=== PATIENT | female | born 1960 | race Hispanic/Latino ===

== ENCOUNTER 2016-07-25 11:01 | Day surgery (SDC) | payer MEDICAID ==
[2016-07-25 11:14] VITALS: BMI 29.7
[2016-07-25] MEDS ORDERED: Lidocaine 1% Inj (20ml) ONE (13:16)
--- NOTE | 2016-07-25 13:49 | CP.SDSHP ---
Same Day Surgery H & P - History Proposed Procedure: US guided FNA of right thyroid nodule Pre-Op Diagnosis: Thyroid nodule - Allergies Allergies: Allergies Penicillins Allergy (Verified 07/25/16 11:25) RASH - Physical Exam Vital Signs: Vital Signs 07/25/16 07/25/16 11:24 11:26 Temperature 98.5 F Pulse Rate 83 Respiratory 20 20 Rate Blood Pressure 141/90 O2 Sat by Pulse 95 Oximetry Mental Status: Alert & Oriented x3 Neuro: WNL Heart: WNL - Impression Impression: Pt with bilateral thyroid nodule referred for. FNA of right thyroid nodule. Plan FNA of thyroid nodule. Pt. Evaluated Today:Candidate for Anesthesia & Procedure: No Short Stay Discharge - Short Stay Discharge Admitting Diagnosis/Reason for Visit: E04.1 Referrals: Mukesh Lamb MD [Primary Care Provider] - Progress Note/Discharge Note with Instructions: S/P FNA of right thyroid nodule. No complications.
--- NOTE | 2016-07-25 13:51 | PCM.SURG1 ---
Surgeon's Initial Post Op Note - Surgeon's Notes Surgeon: Marcelo Kim MD Level Glass Vial Filler: None Type of Anesthesia: Local Pre-Operative Diagnosis: Thyroid nodule Operative Findings: US showed a 3 cm solid rigth thyroid nodule. Post-Operative Diagnosis: Thyroid nodule Operation Performed: US guided FNA. Specimen/Specimens Removed: 25 g FNA x 4 Estimated Blood Loss: EBL {In ML}: 0 Blood Products Given: N/A Drains Used: No Drains Post-Op Condition: Good Date of Surgery/Procedure: 07/25/16 Time of Surgery/Procedure: 13:45
[2016-07-25 13:53] VITALS: RESP 18
[2016-07-25 14:06] VITALS: BP 147/92; PULSE 77; TEMP 98.2; O2SAT 95
--- NOTE | 2016-07-26 11:31 | VASCULAR ---
PROCEDURE: Date of Procedure: 07/25/2016 PROCEDURE: 1. Ultrasound guided FNA of right thyroid nodule, CPT 57955 2. Ultrasound guidance for FNA, 45688 Medications: 4cc 1% Lidocaine HISTORY: Enlarged right thyroid nodule. TECHNIQUE: Following informed consent and procedure time-out, a limited ultrasound patient's neck confirmed the presence of a 2.8 cmcomplex right thyroid nodule which is predominantly solid. After the patient's neck was prepped and draped in the usual sterile fashion, the skin was anesthetized with 1% lidocaine. Ultrasound-guided fine needle aspiration was then performed of the dominant right thyroid nodule. A total of 4 passes were made into the nodule with 25 gauge needle under ultrasound guidance. The FNA specimen was sent for routine pathology. Post biopsy ultrasound showed no hematoma. IMPRESSION: Ultrasound-guided FNA of the dominant right thyroid nodule.
== END 2016-07-25 15:00 | disposition home or self-care (01) ==
LOC: H.OPSURG 11:01
PROVIDERS: ATTEND Otolaryngology Facial Plastic Surgery
DX: E04.1 Nontoxic single thyroid nodule (principal)

== ENCOUNTER 2017-02-27 22:18 | Emergency (ER) | payer MEDICAID ==
[2017-02-27 22:18] VITALS: BMI 29.7
[2017-02-27 22:35] VITALS: TEMP 98.8; O2SAT 97
[2017-02-27] MEDS ORDERED: Albuterol-Ipratrop 3 mg / 0.5 (3 ml) UD IH STA (23:10)
[2017-02-27] MEDS ORDERED: Albuterol-Ipratrop 3 mg / 0.5 (3 ml) UD ONE (23:33)
--- NOTE | 2017-02-27 23:41 | ED PDOC ---
HPI: CCC, URI, Sore Throat Time Seen by Provider: 02/27/17 22:39 Chief Complaint (Nursing): Cough, Cold, Congestion Chief Complaint (Provider): cough, congestion History Per: Patient History/Exam Limitations: no limitations Onset/Duration Of Symptoms: Days (3) Current Symptoms Are (Timing): Still Present Associated Symptoms: Cough, Sputum, Nasal Congestion Additional History Per: Patient Additional Complaint(s): 57 y/o female presents with cough, congestion x 3 days. Patient reports nasal congestion, and persistent cough which became productive of yellow sputum as of today. Associated chest tightness, wheezing. Patient states tonight while yawning her left side of her face became painful and "swollen", like her "bones were sticking out" and once she rubbed the area the swelling went away and was left with some residual numbness to the area. Patient reports history of CSF leak for which she is being followed by specialist for, notes leakage in to mouth daily, states before swelling happened she had large amount of fluid in her mouth. Denies headache, dizziness, extremity numbness/weakness, chest pain , shortness of breath, palpitations, leg pain/swelling, recent travel, sick contacts. Past Medical History Vital Signs: Last Vital Signs Temp 98.8 F 02/27/17 22:30 Pulse 109 H 02/27/17 22:30 Resp 20 02/28/17 03:10 BP 154/96 H 02/27/17 22:30 Pulse Ox 97 02/28/17 03:49 - Medical History PMH: Anxiety, Asthma, Bronchitis, Gastritis, Gastrointestinal Ulcer, GERD, Hypercholesterolemia - Family History Family History: States: No Known Family Hx - Home Medications Home Medications: Ambulatory Orders Medication Instructions Recorded Montelukast Sodium [Singulair] 10 mg PO DAILY 09/24/14 Omeprazole 40 mg PO DAILY 09/24/14 PARoxetine [Paxil] 20 mg PO DAILY 09/24/14 Cholecalciferol [Vitamin D 1000 IU] 1,000 iu PO DAILY 07/25/16 Gabapentin [Neurontin] 400 mg PO BID 07/25/16 Pravastatin Sodium [Pravastatin 20 mg PO DAILY 07/25/16 Sodium] tiZANidine [Zanaflex] 4 mg PO DAILY 07/25/16 Albuterol HFA [Ventolin HFA 90 1 - 2 puff IH Q4 PRN #1 inh 02/28/17 mcg/actuation (8 g)] Fluticasone Nasal [Flonase] 1 actuation NS BID #1 bottle 02/28/17 Prednisone 50 mg PO DAILY #4 tablet 02/28/17 Promethazine HCl/Codeine 5 ml PO Q8 PRN 3 Days 02/28/17 [Prometh-Codein 6.25-10 mg/5 ml] - Allergies Allergies/Adverse Reactions: Allergies Allergy/AdvReac Type Severity Reaction Status Date / Time levofloxacin [From Levaquin] Allergy ANAPHYLAXIS Verified 02/27/17 22:29 Penicillins Allergy RASH Verified 07/25/16 11:25 Review of Systems ROS Statement: Except As Marked, All Systems Reviewed And Found Negative ENT: Positive for: Nose Congestion Respiratory: Positive for: Cough, Sputum, Wheezing Physical Exam - Reviewed Nursing Documentation Reviewed: Yes Vital Signs Reviewed: Yes - Physical Exam Appears: Positive for: Well, Non-toxic, Uncomfortable (actively coughing) Head Exam: Positive for: ATRAUMATIC, NORMAL INSPECTION, NORMOCEPHALIC Skin: Positive for: Normal Color Eye Exam: Positive for: Normal appearance ENT: Positive for: Nasal Congestion Neck: Positive for: Normal, Painless ROM Cardiovascular/Chest: Positive for: Regular Rate, Rhythm Respiratory: Positive for: Decreased Breath Sounds Gastrointestinal/Abdominal: Positive for: Normal Exam Back: Positive for: Normal Inspection Extremity: Positive for: Normal ROM Neurologic/Psych: Positive for: Alert, Oriented - Laboratory Results Result Diagrams: 02/28/17 00:01 02/28/17 00:01 - ECG ECG: Positive for: Viewed By Me (reviewed by ED attending) ECG Rhythm: Positive for: Sinus Tachycardia O2 Sat by Pulse Oximetry: 97 - Radiology X-Ray: Viewed By Me X-Ray Interpretation: No Acute Disease - Progress ED Course And Treament: labs, ekg, chest xray, duonebs Case discussed with ED attending Dr. Youngblood; will order CT facial bones EXAM: CT Maxillofacial Without Intravenous Contrast CLINICAL HISTORY: 57 years old, female; Condition or disease; Other: Lefdt facial swelling; Additional info: Left facial swelling TECHNIQUE: Axial computed tomography images of the face without intravenous contrast. All CT scans at this facility use one or more dose reduction techniques, viz.: automated exposure control; ma/kV adjustment per patient size (including targeted exams where dose is matched to indication; i.e. head); or iterative reconstruction technique. Coronal and sagittal reformatted images were created and reviewed. COMPARISON: No relevant prior studies available. FINDINGS: Bones/joints: Mild degenerative changes of spine. No acute fracture. Soft tissues: Unremarkable. Lymph nodes: Shotty cervical lymph nodes. Orbits: Unremarkable as visualized. Sinuses: Postsurgical changes. Scattered mild mucosal thickening. No air-fluid levels. Mastoid air cells: No mastoid effusion. Dental: Few dental caries. IMPRESSION: 1. No acute findings. 2. Non-acute findings are described above. on re-eval, patient still with persistent cough; solumedrol, promethazine with codeine ordered On re-eval, patient notes improvement of cough, but states it has returned after 15 mins. Trial heliox ordered for bronchospasms 4:15 Patient resting comfortably; states cough has improved. Patient educated on findings, discharged with rx Promethazine with codeine, albuterol HFA, prednisone, flonase. Advised follow up PMD 2-3 days. Follow up ENT/Neuro for chronic CSF leak/resolved facial swelling Return precautions given Disposition - Clinical Impression Clinical Impression: URI (upper respiratory infection), Bronchospasm - Patient ED Disposition Is Patient to be Admitted: No Counseled Patient/Family Regarding: Studies Performed, Diagnosis, Need For Followup, Rx Given - Disposition Disposition: Routine/Home Disposition Time: 04:15 Condition: IMPROVED Prescriptions: Albuterol HFA [Ventolin HFA 90 mcg/actuation (8 g)] 1 - 2 puff IH Q4 PRN #1 inh PRN Reason: Wheezing Fluticasone Nasal [Flonase] 1 actuation NS BID #1 bottle Prednisone 50 mg PO DAILY #4 tablet Promethazine HCl/Codeine [Prometh-Codein 6.25-10 mg/5 ml] 5 ml PO Q8 PRN 3 Days PRN Reason: Cough Instructions: Upper Respiratory Infection (ED), Bronchospasm (ED) Forms: [employer] (Cuban)
[2017-02-28 00:20] LABS: BASO # 0.1 K/uL (0.0-0.2); BASO % 0.8 % (0.0-2.0); EOS # 0.7 K/uL (0.0-0.7); EOS % 10.2 % (0.0-4.0); HEMOGLOBIN 11.1 g/dL (12.0-16.0); LYMPH # 2.2 K/uL (1.0-4.3); LYMPH % 29.9 % (20.0-40.0); MEAN CELL VOLUME 91.1 fl (81.0-99.0); MEAN CORPUSCULAR HEMOGLOBIN 29.3 pg (27.0-31.0); MEAN CORPUSCULAR HGB CONC 32.2 g/dL (33.0-37.0); MONO # 0.7 K/uL (0.0-0.8); MONO % 9.4 % (0.0-10.0); NEUT # 3.6 K/uL (1.8-7.0); NEUT % 49.7 % (50.0-75.0); NRBC % 0.1 % (0.0-0.0); RBC 3.78 Mil/uL (3.80-5.20); RED CELL DISTRIBUTION WIDTH 14.3 % (11.5-14.5); WHITE BLOOD COUNT 7.3 K/uL (4.8-10.8)
[2017-02-28 00:22] LABS: ALB/GLOB RATIO 1.2 (1.0-2.1); ALT/SGPT 55 U/L (9-52); AST/SGOT 43 U/L (14-36); BLOOD UREA NITROGEN 12 mg/dl (7-17); CALCIUM 8.9 mg/dL (8.4-10.2); GFR AFRICAN-AMERICAN > 60; GFR NON-AFRICAN AMERICAN > 60
[2017-02-28] MEDS ORDERED: Promethazine/Cod 6.25mg-10mg/5ml Syr UD PO STA (01:34)
--- NOTE | 2017-02-28 01:40 | CT ---
EXAM: CT Maxillofacial Without Intravenous Contrast CLINICAL HISTORY: 57 years old, female; Condition or disease; Other: Lefdt facial swelling; Additional info: Left facial swelling TECHNIQUE: Axial computed tomography images of the face without intravenous contrast. All CT scans at this facility use one or more dose reduction techniques, viz.: automated exposure control; ma/kV adjustment per patient size (including targeted exams where dose is matched to indication; i.e. head); or iterative reconstruction technique. Coronal and sagittal reformatted images were created and reviewed. COMPARISON: No relevant prior studies available. FINDINGS: Bones/joints: Mild degenerative changes of spine. No acute fracture. Soft tissues: Unremarkable. Lymph nodes: Shotty cervical lymph nodes. Orbits: Unremarkable as visualized. Sinuses: Postsurgical changes. Scattered mild mucosal thickening. No air-fluid levels. Mastoid air cells: No mastoid effusion. Dental: Few dental caries. IMPRESSION: 1.No acute findings. 2.Non-acute findings are described above.
[2017-02-28] MEDS ORDERED: Promethazine/Cod 6.25mg-10mg/5ml Syr UD ONE (01:49)
[2017-02-28 06:27] VITALS: BP 142/88; PULSE 99; RESP 16
--- NOTE | 2017-02-28 09:48 | RAD ---
HISTORY: cough, congestion COMPARISON: None available. TECHNIQUE: Chest PA and lateral FINDINGS: Examination limited by habitus. LUNGS: No focal consolidation. Please note that chest x-ray has limited sensitivity for the detection of pulmonary masses. PLEURA: No significant pleural effusion identified. No definite pneumothorax . CARDIOVASCULAR: The cardiomediastinal silhouette appears within normal limits of size. OSSEOUS STRUCTURES: Mild degenerative changes. VISUALIZED UPPER ABDOMEN: Unremarkable. OTHER FINDINGS: None. IMPRESSION: No focal consolidation, significant pleural effusion, or definite pneumothorax identified.
--- NOTE | 2017-02-28 11:05 | CARD ---
APPROVED REPORT EKG Measurement Heart [id number] <Conclusion> Sinus tachycardia Otherwise normal ECG
== END 2017-02-28 04:09 | disposition home or self-care (01) ==
LOC: H.ER 22:18
DX: J06.9 Acute upper respiratory infection, unspecified (principal); J98.01 Acute bronchospasm; E78.00 Pure hypercholesterolemia, unspecified; F41.9 Anxiety disorder, unspecified; Z88.0 Allergy status to penicillin
CPT/HCPCS: 70486; 71046; 80053; 84484; 85025; 87804; 93005; 96374; 99283; J2930

== ENCOUNTER 2017-11-27 17:23 | Emergency (ER) | payer MEDICAID ==
[2017-11-27 17:23] VITALS: BMI 29.7
[2017-11-27 17:38] VITALS: RESP 16
[2017-11-27 19:02] LABS: VENOUS BLOOD GAS BASE EXCESS -2.1 mmol/L (0.0-2.0); VENOUS BLOOD GAS PCO2 78 mmHg (40-60); VENOUS BLOOD GAS PO2 40 mm/Hg (30-55); VENOUS BLOOD PH 7.17 (7.32-7.43)
[2017-11-27 19:14] LABS: BASO % 0.7 % (0.0-2.0); EOS # 0.5 K/uL (0.0-0.7); EOS % 8.1 % (0.0-4.0); HEMOGLOBIN 11.7 g/dL (12.0-16.0); LYMPH # 2.6 K/uL (1.0-4.3); LYMPH % 38.7 % (20.0-40.0); MEAN CELL VOLUME 89.9 fl (81.0-99.0); MEAN CORPUSCULAR HEMOGLOBIN 30.4 pg (27.0-31.0); MEAN CORPUSCULAR HGB CONC 33.8 g/dL (33.0-37.0); MEAN PLATELET VOLUME 8.7 fl (7.2-11.7); MONO # 0.5 K/uL (0.0-0.8); NEUT % 44.5 % (50.0-75.0); RBC 3.83 Mil/uL (3.80-5.20); RED CELL DISTRIBUTION WIDTH 14.6 % (11.5-14.5); WHITE BLOOD COUNT 6.6 K/uL (4.8-10.8)
[2017-11-27 19:15] LABS: INR 0.9; PROTHROMBIN TIME 10.2 Seconds (9.8-13.1)
[2017-11-27 19:17] LABS: PARTIAL THROMBOPLASTIN TIME 35.5 Seconds (25.6-37.1)
[2017-11-27 19:22] LABS: ALB/GLOB RATIO 1.3 (1.0-2.1); ALBUMIN 4.2 g/dL (3.5-5.0); ALT/SGPT 46 U/L (9-52); AST/SGOT 47 U/L (14-36); BLOOD UREA NITROGEN 16 mg/dl (7-17); CALCIUM 9.4 mg/dL (8.4-10.2); GFR NON-AFRICAN AMERICAN > 60; LIPASE 104 U/L (23-300)
--- NOTE | 2017-11-27 19:51 | ED PDOC ---
HPI: Neurologic - General Time Seen by Provider: 11/27/17 18:06 Chief Complaint (Nursing): Weakness/Neurological Deficit Source: patient Exam Limitations: no limitations - History of Present Illness Timing/Duration: other (2 months) Associated Symptoms: fatigue, numbness in legs/feet, tingling in legs/feet, other (tingling in arms) Allergies/Adverse Reactions: Allergies levofloxacin [From Levaquin] Allergy (Verified 11/27/17 17:32) ANAPHYLAXIS Penicillins Allergy (Verified 11/27/17 17:32) RASH Home Medications: Ambulatory Orders Montelukast Sodium [Singulair] 10 mg PO DAILY 09/24/14 PARoxetine [Paxil] 20 mg PO DAILY 09/24/14 RX: Omeprazole 40 mg PO DAILY 09/24/14 Cholecalciferol [Vitamin D 1000 IU] 1,000 iu PO DAILY 07/25/16 Pravastatin Sodium 20 mg PO DAILY 07/25/16 RX: Gabapentin [Neurontin] 400 mg PO BID 07/25/16 RX: tiZANidine [Zanaflex] 4 mg PO DAILY 07/25/16 Fluticasone Nasal [Flonase] 1 actuation NS BID #1 bottle 02/28/17 RX: Albuterol HFA [Ventolin HFA 90 mcg/actuation (8 g)] 1 - 2 puff IH Q4 PRN #1 inh 02/28/17 RX: Prednisone 50 mg PO DAILY #4 tablet 02/28/17 RX: Promethazine HCl/Codeine [Prometh-Codein 6.25-10 mg/5 ml] 5 ml PO Q8 PRN 3 Days 02/28/17 Metoclopramide HCl [Reglan] 5 mg PO BID #14 tablet 11/27/17 Additional Complaint(s): 57 yo F presents to the ED with complaint of two months of dizziness, headache, and worsening tingling in her arms and legs. PT states in April she had a brain surgery after having surgical problems associated and being referred by an ENT. PT unsure of what ENT involvement was. Pt states that while in the hospital, cristofer samuels began having left sided abdominal pain. An ultrasound showed a kidney abnormality and she was dischared with a urology referral. Pt went to see the urologist who told her she needed to see a soil checker. Pt had not seen a soil checker to this point. PT states she knows she should have followed up regarding the worsening headache and abdominal pain but that due to personal issues, she has been unable to. Denies fever, nuchal rigdity, blood in urine, pain with urination, fever, weakness, or other complaints. PMD: Dr. Lamb Neurosurgeon: Dr Henry Adamson ENT: Dr. Humphreys Past Medical History Vital Signs: Last Vital Signs Temp 98.6 F 11/27/17 17:33 Pulse 101 H 11/27/17 17:33 Resp 16 11/27/17 17:33 BP 160/66 H 11/27/17 17:33 Pulse Ox 97 11/27/17 17:33 - Medical History PMH: Anxiety, Asthma, Bronchitis, Gastritis, Gastrointestinal Ulcer, GERD, Hypercholesterolemia - Family History Family History: States: Unknown Family Hx - Home Medications Home Medications: Ambulatory Orders Medication Instructions Recorded Montelukast Sodium [Singulair] 10 mg PO DAILY 09/24/14 PARoxetine [Paxil] 20 mg PO DAILY 09/24/14 RX: Omeprazole 40 mg PO DAILY 09/24/14 Cholecalciferol [Vitamin D 1000 IU] 1,000 iu PO DAILY 07/25/16 Pravastatin Sodium 20 mg PO DAILY 07/25/16 RX: Gabapentin [Neurontin] 400 mg PO BID 07/25/16 RX: tiZANidine [Zanaflex] 4 mg PO DAILY 07/25/16 Fluticasone Nasal [Flonase] 1 actuation NS BID #1 bottle 02/28/17 RX: Albuterol HFA [Ventolin HFA 90 1 - 2 puff IH Q4 PRN #1 inh 02/28/17 mcg/actuation (8 g)] RX: Prednisone 50 mg PO DAILY #4 tablet 02/28/17 RX: Promethazine HCl/Codeine 5 ml PO Q8 PRN 3 Days 02/28/17 [Prometh-Codein 6.25-10 mg/5 ml] Metoclopramide HCl [Reglan] 5 mg PO BID #14 tablet 11/27/17 - Allergies Allergies/Adverse Reactions: Allergies Allergy/AdvReac Type Severity Reaction Status Date / Time levofloxacin [From Levaquin] Allergy ANAPHYLAXIS Verified 11/27/17 17:32 Penicillins Allergy RASH Verified 11/27/17 17:32 Physical Exam - Physical Exam Appears: Positive for: Well, Non-toxic, No Acute Distress Head Exam: Positive for: ATRAUMATIC, NORMAL INSPECTION Skin: Positive for: Normal Color, Warm, Dry Eye Exam: Positive for: Normal appearance, EOMI, PERRL. Negative for: Nystagmus ENT: Positive for: Normal ENT Inspection Neck: Positive for: Normal Cardiovascular/Chest: Positive for: Regular Rate, Rhythm. Negative for: Chest Non Tender Respiratory: Positive for: Normal Breath Sounds Pulses-Radial (L): 2+ Pulses-Radial (R): 2+ Gastrointestinal/Abdominal: Positive for: Normal Exam, Bowel Sounds, Soft. Negative for: Tenderness Back: Negative for: L CVA Tenderness - Laboratory Results Result Diagrams: 11/27/17 19:00 11/27/17 17:00 - ECG O2 Sat by Pulse Oximetry: 97 Medical Decision Making Medical Decision Making: Pt presents with worsening headache, left facial pain, and left renal pain following previous brain surgery. Also with pain to left jaw consistent with parotid gland origin. Will get CT brain and facial bones. CT abd and pelvis for work up of worsening left flank pain. Pain control. Labs. Re-evaluate pt. 23:50 -Labs and imaging unremarkable. Information discussed with patient. He will follow up with ENT specialist regarding chronic sinusitis and also with nephrol ogist as previously referred for right sided flank pain. Disposition - Clinical Impression Clinical Impression: Headache, Chronic sinusitis - Disposition Disposition: Routine/Home Disposition Time: 23:50 Condition: IMPROVED Additional Instructions: Take Reglan as needed for nausea. Follow up with ENT to discuss chronic sinusitis and with soil checker regarding left flank pain. Return to the emergency department if symptoms worsen. Prescriptions: Metoclopramide HCl [Reglan] 5 mg PO BID #14 tablet Instructions: Sinusitis, Adult (DC), Chronic Sinusitis Forms: [employer] (Urdu) Print Language: THAI
[2017-11-27] MEDS ORDERED: Iohexol 300 100 ML IJ ONE (21:04)
[2017-11-27] MEDS ORDERED: Sodium Chloride 0.9% 50 ML IV ONE (21:05)
[2017-11-27] MEDS ORDERED: Iohexol 300 50 ML ONE (21:05)
[2017-11-27] MEDS ORDERED: Naproxen 500 MG TAB PO STA (23:18)
[2017-11-28 00:36] VITALS: BP 133/74; PULSE 87; TEMP 98.1
--- NOTE | 2017-11-28 08:57 | CT ---
Date of service: 11/27/2017 PROCEDURE: CT HEAD WITH AND WITHOUT CONTRAST HISTORY: headache and numbness after brain surgery COMPARISON: 09/24/2014 TECHNIQUE: Axial computed tomography images were obtained through the head/brain with and without intravenous contrast enhancement. Contrast dose: 90 mL Omnipaque 300 Radiation dose: Total exam DLP = 781.07 and 796.59 mGy-cm. This CT exam was performed using one or more of the following dose reduction techniques: Automated exposure control, adjustment of the mA and/or kV according to patient size, and/or use of iterative reconstruction technique. FINDINGS: HEMORRHAGE: No intracranial hemorrhage. BRAIN: No mass, mass effect or edema. No abnormal intracranial enhancement. No atrophy or chronic microvascular ischemic changes. VENTRICLES: Unremarkable. No hydrocephalus. CALVARIUM: Unremarkable. SINUSES: Status post bilateral medial antrectomy/uncinectomy. Chronic ethmoid and frontal sinusitis. MASTOID AIR CELLS: Unremarkable as visualized. No mastoid effusion. OTHER FINDINGS: None. IMPRESSION: No intracranial mass, hemorrhage or evidence of acute infarct. Chronic paranasal sinusitis. Postoperative changes of the maxillary sinuses. The preliminary findings for this examination were reported by [facility] at 11:04 p.m. on 11/27/2017. There is concurrence of this report with the preliminary findings.
--- NOTE | 2017-11-28 10:40 | CT ---
Date of service: 11/27/2017 PROCEDURE: CT Abdomen and Pelvis with contrast HISTORY: Worsening left-sided pain. COMPARISON: None. TECHNIQUE: Intravenous contrast dose: 90 cc Omnipaque 300. Radiation dose: Total exam DLP = 979.89. mGy-cm. This CT exam was performed using one or more of the following dose reduction techniques: Automated exposure control, adjustment of the mA and/or kV according to patient size, and/or use of iterative reconstruction technique. FINDINGS: LOWER THORAX: Unremarkable. LIVER: Hepatic steatosis. No focal masses. No intrahepatic bile duct dilatation or perihepatic ascites. Incidental finding(s): Simple cyst right hepatic lobe 1.7 cm. Additional smaller presumed benign findings identified scattered throughout the liver these are well-circumscribed and likely additional cysts. GALLBLADDER AND BILE DUCTS: Unremarkable. PANCREAS: Unremarkable. No gross lesion or ductal dilatation. SPLEEN: Unremarkable. ADRENALS: Unremarkable. No mass. KIDNEYS AND URETERS: Unremarkable. No hydronephrosis. No solid mass. VASCULATURE: Unremarkable. No aortic aneurysm. BOWEL: Unremarkable. No obstruction. No gross mural thickening. APPENDIX: Normal appendix. PERITONEUM: Unremarkable. No free fluid. No free air. LYMPH NODES: Unremarkable. No enlarged lymph nodes. BLADDER: Unremarkable. REPRODUCTIVE: Unremarkable. BONES: No acute fracture. OTHER FINDINGS: None. IMPRESSION: No acute findings related to/accounting for the clinical presentation. Additional benign and/or incidental findings described above. Concordant results (preliminary interpretation) provided by [employer]. Procedure Completed: 22:56. Preliminary Report: Dictated and Authenticated: 23:18. Final Interpretation: 10:38.
--- NOTE | 2017-11-28 10:43 | CT ---
Date of service: 11/27/2017 PROCEDURE: CT MAXILLOFACIAL BONES WITH CONTRAST HISTORY: left facial pain over parotid gland COMPARISON: 02/28/[address] TECHNIQUE: Contiguous axial CT images of the maxillofacial bones were obtained following administration of IV contrast. Coronal and sagittal reformats were generated. Intravenous contrast Dose: 50 cc Omnipaque 300. Radiation dose: Total exam DLP = 773.93 mGy-cm. This CT exam was performed using one or more of the following dose reduction techniques: Automated exposure control, adjustment of the mA and/or kV according to patient size, and/or use of iterative reconstruction technique. FINDINGS: NASAL BONES: Unremarkable. ORBITS: Unremarkable. PARANASAL SINUSES/ MASTOIDS: Mild ethmoid and left frontal sinusitis. Similar findings identified on the prior study. MAXILLA: Unremarkable. MANDIBLE/ TEMPOROMANDIBULAR JOINTS: Unremarkable. SKULL BASE: Unremarkable. TEMPORAL BONES: Middle ears and mastoid grossly unremarkable. OTHER FINDINGS: None. IMPRESSION: No acute findings related to/accounting for the clinical presentation. Additional benign and/or incidental findings described above. No significant interval change compared to the prior examination(s). Concordant results (preliminary interpretation) provided by [employer]. Procedure Completed: 22:01. Preliminary Report: Dictated and Authenticated: 23:12. Final Interpretation: 10:41. November 28, 2017
[2017-11-29 15:28] VITALS: O2SAT 97
== END 2017-11-28 00:35 | disposition home or self-care (01) ==
LOC: H.ER 17:23
DX: R51 Headache (principal); J32.9 Chronic sinusitis, unspecified; E78.00 Pure hypercholesterolemia, unspecified; Z88.0 Allergy status to penicillin
CPT/HCPCS: 70470; 70488; 74177; 80053; 81025; 82803; 83690; 85025; 85610; 85730; 86850; 86900; 96374; 96375; 99285; J2270; J2765; Q9967

== ENCOUNTER 2018-07-10 19:50 | Inpatient (IN) | payer MEDICAID ==
[2018-07-10 21:20] LABS: VENOUS BLOOD GAS BASE EXCESS 2.5 mmol/L (0.0-2.0); VENOUS BLOOD GAS PCO2 53 mmHg (40-60); VENOUS BLOOD GAS PO2 34 mm/Hg (30-55); VENOUS BLOOD PH 7.35 (7.32-7.43)
[2018-07-10 21:27] LABS: BASO % 0.6 % (0.0-2.0); EOS # 0.4 K/uL (0.0-0.7); HEMOGLOBIN 11.9 g/dL (12.0-16.0); LYMPH % 29.3 % (20.0-40.0); MEAN CORPUSCULAR HEMOGLOBIN 29.5 pg (27.0-31.0); MEAN CORPUSCULAR HGB CONC 32.8 g/dL (33.0-37.0); MEAN PLATELET VOLUME 8.6 fl (7.2-11.7); MONO # 0.6 K/uL (0.0-0.8); MONO % 8.1 % (0.0-10.0); NEUT # 3.8 K/uL (1.8-7.0); NRBC % 0.1 % (0.0-0.0); RBC 4.02 Mil/uL (3.80-5.20); RED CELL DISTRIBUTION WIDTH 14.8 % (11.5-14.5); WHITE BLOOD COUNT 6.8 K/uL (4.8-10.8)
--- NOTE | 2018-07-10 21:31 | ED PDOC ---
HPI: Headache Time Seen by Provider: 07/10/18 20:20 Chief Complaint (Nursing): Headache Chief Complaint (Provider): Headache History Per: Patient History/Exam Limitations: no limitations Onset/Duration Of Symptoms: Days (x 2 weeks) Current Symptoms Are (Timing): Still Present Quality: "Pain" Preceeding Symptoms: Visual Disturbances Associated Symptoms: Blurred Vision, Extremity Weakness Additional Complaint(s): 58 year old female with two weeks worsening dizziness, headache and shortness of breath that started today. patient also reports right sided neck pain that radiates to her right arm. 1 year ago, the patient has brain surgery for a CSF leak and has a history of a herniated disc in her neck as well as chronic lower back pain. Conditions are supposed to be managed with physical therapy. However, patient has missed the last few sessions because it exacerbates the pain for the two days following. She describes dizziness as a combination of that and vertigo, feeling lightheaded constantly and room spinning dizzy when moving. Yesterday, she had an episode where the left side of her face was numb and her left leg was not moving properly. Today, the episodes of vertigo became so severe, she lost vision and felt like she would pass out. PMD: Dr. Mukesh Lamb Past Medical History Reviewed: Historical Data, Nursing Documentation, Vital Signs Vital Signs: Last Vital Signs Temp 98.7 F 07/10/18 20:02 Pulse 81 07/10/18 21:27 Resp 17 07/10/18 21:27 BP 154/84 H 07/10/18 21:27 Pulse Ox 96 07/10/18 21:27 Primary Care Provider: Doctor,Conversion - Medical History PMH: Anxiety, Asthma, Bronchitis, Gastritis, Gastrointestinal Ulcer, GERD, Hypercholesterolemia - Family History Family History: States: Unknown Family Hx - Home Medications Home Medications: Ambulatory Orders Medication Instructions Recorded Montelukast Sodium [Singulair] 10 mg PO DAILY 09/24/14 Omeprazole 40 mg PO DAILY 09/24/14 PARoxetine [Paxil] 40 mg PO DAILY 09/24/14 Gabapentin [Neurontin] 400 mg PO BID 07/25/16 Albuterol HFA [Ventolin HFA 90 1 - 2 puff IH Q4 PRN #1 inh 02/28/17 mcg/actuation (8 g)] Fluticasone Nasal [Flonase] 1 actuation NS BID #1 bottle 02/28/17 Atorvastatin [Lipitor] 40 mg PO DAILY 07/10/18 Cyanocobalamin (Vitamin B-12) 1,000 mcg PO DAILY 07/10/18 [Vitamin B-12] - Allergies Allergies/Adverse Reactions: Allergies Allergy/AdvReac Type Severity Reaction Status Date / Time levofloxacin [From Levaquin] Allergy ANAPHYLAXIS Verified 07/10/18 20:00 Penicillins Allergy RASH Verified 07/10/18 20:00 Review of Systems ROS Statement: Except As Marked, All Systems Reviewed And Found Negative Respiratory: Positive for: Shortness of Breath Musculoskeletal: Positive for: Neck Pain (radiates to right arm) Neurological: Positive for: Headache, Dizziness, Other (vertigo) Physical Exam - Reviewed Nursing Documentation Reviewed: Yes Vital Signs Reviewed: Yes - Physical Exam Appears: Positive for: No Acute Distress Head Exam: Positive for: ATRAUMATIC, NORMOCEPHALIC Skin: Positive for: Normal Color, Warm, Dry Eye Exam: Positive for: EOMI, Normal appearance, PERRL Neck: Positive for: Normal, Painless ROM, Supple Cardiovascular/Chest: Positive for: Regular Rate, Rhythm. Negative for: Murmur Respiratory: Positive for: Normal Breath Sounds. Negative for: Respiratory Distress Gastrointestinal/Abdominal: Positive for: Normal Exam, Soft. Negative for: Tenderness Extremity: Positive for: Normal ROM (x 4) Neurological/Psych: Positive for: Awake, Alert, Normal Tone, Symmetric/Intact Strength (of all extremities), Oriented (x 3). Negative for: Motor/Sensory Deficits, Facial Droop - Laboratory Results Result Diagrams: 07/11/18 05:41 07/11/18 05:41 Lab Results: pO2 34 mm/Hg (30-55) 07/10/18 21:10 VBG pH 7.35 (7.32-7.43) 07/10/18 21:10 VBG pCO2 53 mmHg (40-60) 07/10/18 21:10 VBG HCO3 25.9 mmol/L 07/10/18 21:10 VBG Total CO2 30.9 mmol/L (22-28) H 07/10/18 21:10 VBG O2 Sat (Calc) 70.9 % (40-65) H 07/10/18 21:10 VBG Base Excess 2.5 mmol/L (0.0-2.0) H 07/10/18 21:10 VBG Potassium 3.7 mmol/L (3.6-5.2) 07/10/18 21:10 Sodium 139.0 mmol/L (132-148) 07/10/18 21:10 Chloride 105.0 mmol/L (98-107) 07/10/18 21:10 Glucose 99 mg/dL (65-105) 07/10/18 21:10 Lactate 1.1 mmol/L (0.7-2.1) 07/10/18 21:10 FiO2 21.0 % 07/10/18 21:10 - ECG O2 Sat by Pulse Oximetry: 96 (RA) Pulse Ox Interpretation: Normal Medical Decision Making Medical Decision Makin:22 MDM: Patient with previous CSF leak with brain surgery, now with unusual symptoms of vertigo vs dizziness vs headache CT brain and CT C spine Labs workup for infectious cause or other abnormalities Neuro consuilt probable admission 22:10 CT and labs unremarkable Patient remains symptomatic Admit patient for observation under Dr. Lugo with neuro consult Scribe Attestation: Documented by Mayela Robbins, acting as a scribe for Trisha Sanchez MD. Provider Scribe Attestation: All medical record entries made by the Scribe were at my direction and personally dictated by me. I have reviewed the chart and agree that the record accurately reflects my personal performance of the history, physical exam, medical decision making, and the department course for this patient. I have also personally directed, reviewed, and agree with the discharge instructions and disposition. Disposition - Clinical Impression Clinical Impression: Headache, Blurring of visual image - Patient ED Disposition Is Patient to be Admitted: Yes - Disposition Disposition Time: 22:10 Condition: GUARDED - Pt Status Changed To: Hospital Disposition Of: Observation
[2018-07-10 21:36] LABS: PROTHROMBIN TIME 10.9 Seconds (9.8-13.1)
[2018-07-10 21:37] LABS: ALB/GLOB RATIO 1.3 (1.0-2.1); ALBUMIN 4.4 g/dL (3.5-5.0); ALT/SGPT 34 U/L (9-52); AST/SGOT 37 U/L (14-36); BLOOD UREA NITROGEN 13 mg/dl (7-17); CALCIUM 9.6 mg/dL (8.4-10.2); GFR NON-AFRICAN AMERICAN > 60
[2018-07-10 21:39] LABS: PARTIAL THROMBOPLASTIN TIME 36.3 Seconds (25.6-37.1)
[2018-07-10 21:47] LABS: URINE BILIRUBIN NEGATIVE (NEGATIVE); URINE BLOOD SMALL (NEGATIVE); URINE CLARITY CLEAR (Clear); URINE COLOR YELLOW (YELLOW); URINE GLUCOSE (UA) NEG (NEGATIVE); URINE LEUKOCYTE ESTERASE NEG Leu/uL (Negative); URINE PROTEIN NEGATIVE (NEGATIVE); URINE UROBILINOGEN 0.2-1.0 mg/dL (0.2-1.0)
[2018-07-10 21:54] LABS: SQUAMOUS EPITHIAL 3 /hpf (0-5)
[2018-07-10 21:55] LABS: URINE BACTERIA FEW (<OCC)
[2018-07-11] MEDS ORDERED: Albuterol HFA 90 mcg/actuation (8 g) IH PRN (00:28)
[2018-07-11 00:35] VITALS: BMI 32.3
[2018-07-11] MEDS ORDERED: Magnesium Hydroxide Susp 30 ml UD PO ONE (00:38)
[2018-07-11] MEDS: Albuterol-Ipratrop 3 mg / 0.5 (3 ml) UD INH SCH ×4 (02:55→19:15)
[2018-07-11] MEDS ORDERED: Pneumococcal 23-Valent Vaccine IM ONE (06:30)
[2018-07-11 07:25] LABS: HEMOGLOBIN 11.3 g/dL (12.0-16.0); MEAN CELL VOLUME 89.2 fl (81.0-99.0); MEAN CORPUSCULAR HEMOGLOBIN 29.8 pg (27.0-31.0); MEAN CORPUSCULAR HGB CONC 33.4 g/dL (33.0-37.0); RBC 3.8 Mil/uL (3.80-5.20); RED CELL DISTRIBUTION WIDTH 14.8 % (11.5-14.5)
[2018-07-11 07:35] LABS: LDL CHOLESTEROL 97 mg/dL (0-129)
[2018-07-11 07:53] LABS: T3 1.14 nmol/L (1.49-2.60)
[2018-07-11 08:10] LABS: ALB/GLOB RATIO 1.3 (1.0-2.1); ALBUMIN 4.2 g/dL (3.5-5.0); ALT/SGPT 26 U/L (9-52); AST/SGOT 33 U/L (14-36); BLOOD UREA NITROGEN 12 mg/dl (7-17); CALCIUM 9.7 mg/dL (8.4-10.2); GFR NON-AFRICAN AMERICAN > 60; HDL CHOLESTEROL 48 MG/DL (30-70)
[2018-07-11] MEDS: Enoxaparin 40 mg Syringe SC SCH (09:04)
[2018-07-11] MEDS: Pantoprazole 40 mg EC Tab PO SCH (09:05)
[2018-07-11] MEDS ORDERED: Gadodiamide 287 MG/ML VIAL (15ML) IV ONE (09:21)
--- NOTE | 2018-07-11 09:23 | CT ---
Date of service: 07/10/2018 PROCEDURE: CT HEAD WITHOUT CONTRAST. HISTORY: dizziness, left sided weakness COMPARISON: 11/27/2017. CT head TECHNIQUE: Axial computed tomography images were obtained through the head/brain without intravenous contrast. Supplemental Coronal and Sagittal projections created and reviewed. Radiation dose: Total exam DLP = <inf_radiation_dlp> mGy-cm. This CT exam was performed using one or more of the following dose reduction techniques: Automated exposure control, adjustment of the mA and/or kV according to patient size, and/or use of iterative reconstruction technique. FINDINGS: HEMORRHAGE: No intracranial hemorrhage. BRAIN: No mass effect or edema. Bifrontal cortical atrophy unchanged. VENTRICLES: Unremarkable. No hydrocephalus. CALVARIUM: Unremarkable. PARANASAL SINUSES: No acute inflammatory changes. Postoperative changes medial wall both maxillary sinuses. Primarily frontal/chronic sinusitis. MASTOID AIR CELLS: Unremarkable as visualized. No inflammatory changes. OTHER FINDINGS: None. IMPRESSION: No acute intracranial abnormalities. No significant findings to account for the clinical presentation. No significant interval change compared to the prior examination(s). Concordant results (preliminary interpretation) provided by [facility]. Procedure Completed: 20:43. Preliminary Report: Interpreted and electronically signed: 21:00. Final Interpretation: 09:20. July 11, 2018.
--- NOTE | 2018-07-11 09:26 | CT ---
Date of service: 07/10/2018 PROCEDURE: CT Cervical Spine without contrast HISTORY: neck pain radiating to right arm COMPARISON: None available. TECHNIQUE: Axial computed tomography images were obtained of the cervical spine without the use of intravenous contrast. Coronal and sagittal reformatted images were created and reviewed. Radiation dose: Total exam DLP = 354.45 mGy-cm. This CT exam was performed using one or more of the following dose reduction techniques: Automated exposure control, adjustment of the mA and/or kV according to patient size, and/or use of iterative reconstruction technique. FINDINGS: VERTEBRAE: No fracture. Normal alignment. No destructive bony lesion. DISCS/SPINAL CANAL/NEURAL FORAMINA: No significant central canal or neural foraminal stenosis. Disc degenerative change C5-6. Less pronounced changes unilaterally on the left at C4-5. PARASPINAL SOFT TISSUES: Unremarkable. OTHER FINDINGS: None. IMPRESSION: No significant or acute findings to account for/ related to the clinical presentation. Additional benign and/or incidental findings described above. Concordant results (preliminary interpretation) provided by [facility]. Procedure Completed: 20:47. Preliminary Report: Interpreted and electronically signed: 21:02. Final Interpretation: 09:22. July 11, 2018.
--- NOTE | 2018-07-11 10:49 | MRI ---
Date of service: 07/11/2018 PROCEDURE: MRI BRAIN WITHOUT CONTRAST HISTORY: worsening ALONSO, subj left sided weakness, vertigo COMPARISON: None available. TECHNIQUE: Multiplanar, multisequence MR images of the brain were obtained without intravenous contrast enhancement. FINDINGS: HEMORRHAGE: None DWI: No evidence of an acute or early subacute infarction. BRAIN PARENCHYMA: No mass effect or edema. No atrophy or chronic microvascular ischemic changes. VENTRICLES: Unremarkable. No hydrocephalus. CRANIUM: Unremarkable. ORBITS: Grossly unremarkable. PARANASAL SINUSES/MASTOIDS: Opacification of the left frontal sinus VASCULAR SYSTEM: Skull base flow voids intact. OTHER FINDINGS: None. IMPRESSION: No acute intracranial finding
--- NOTE | 2018-07-11 10:54 | RAD ---
Date of service: 07/10/2018 HISTORY: possible admission COMPARISON: 02/27/2017 FINDINGS: LUNGS: No active pulmonary disease. PLEURA: No significant pleural effusion identified, no pneumothorax apparent. CARDIOVASCULAR: No atherosclerotic calcification present No radiographic findings to suggest acute or significant cardiovascular disease. OSSEOUS STRUCTURES: No significant abnormalities. VISUALIZED UPPER ABDOMEN: Normal. OTHER FINDINGS: None. IMPRESSION: No active disease. No significant interval change compared to the prior examination(s).
--- NOTE | 2018-07-11 15:33 | CARD ---
APPROVED REPORT Date of service: 07/10/2018 EKG Measurement Heart [id number] <Conclusion> Normal sinus rhythm Nonspecific ST abnormality Abnormal ECG
--- NOTE | 2018-07-11 15:51 | CP.PCM.CON ---
History of Present Illness - History of Present Illness History of Present Illness: Neurology Consultation Note: Consult requested by Dr. Lugo Mrs. Oakes is a 58-year-old woman with a past medical history of CSF leak (s/p transphenoidal surgical treatment one year ago), cervical disc heriation, who complained of right side neck pain and pain in her right arm. She was prescribed PT, but is unable to complete it due to worsening vertigo. Two days ago, she had left side numbness and leg weakness that all resolved. CT head did not show any acute findings, and MRI of the brain did not show any acute infarct. She had minor T2 hyperintensities that are non-specific. She continues to complain of headache. Review of Systems - Review of Systems All systems: reviewed and no additional remarkable complaints except Past Patient History - Past Medical History & Family History Past Medical History?: Yes - Past Social History Smoking Status: Former Smoker - CARDIAC Hx Hypercholesterolemia: Yes - PULMONARY Hx Asthma: Yes Hx Bronchitis: Yes - NEUROLOGICAL Hx Neurological Disorder: No - HEENT Hx HEENT Problems: Yes Other/Comment: Hx nasal polyps - ENDOCRINE/METABOLIC Hx Endocrine Disorders: No - HEMATOLOGICAL/ONCOLOGICAL Hx Blood Disorders: No - MUSCULOSKELETAL/RHEUMATOLOGICAL Hx Falls: No Hx Herniated Disk: Yes - GASTROINTESTINAL Hx Gastritis: Yes Hx Gastroesophageal Reflux: Yes Hx Ulcer: Yes - GENITOURINARY/GYNECOLOGICAL Hx Genitourinary Disorders: Yes Other/Comment: Hx Endometriosis - PSYCHIATRIC Hx Anxiety: Yes Hx Substance Use: No - SURGICAL HISTORY Hx Surgeries: Yes Other/Comment: Hx nasal polyps removal. Hx Exploratory Laparoscopy for endometriosis. Hx removal of cyst on throat,moles removed from face - ANESTHESIA Hx Anesthesia: Yes Hx Anesthesia Reactions: No Hx Malignant Hyperthermia: No Meds Allergies/Adverse Reactions: Allergies Allergy/AdvReac Type Severity Reaction Status Date / Time levofloxacin [From Levaquin] Allergy ANAPHYLAXIS Verified 07/10/18 20:00 Penicillins Allergy RASH Verified 07/10/18 20:00 - Medications Medications: Current Medications Albuterol (Ventolin Hfa 90 Mcg/Actuation (8 G)) 2 puff IH Q4 PRN PRN Reason: Wheezing,sob Albuterol/Ipratropium (Duoneb 3 Mg/0.5 Mg (3 Ml) Ud) 3 ml INH RQ6 NELI Last Admin: 07/11/18 13:00 Dose: 3 ml Atorvastatin Calcium (Lipitor) 40 mg PO DAILY [facility] Last Admin: 07/11/18 09:04 Dose: 40 mg Cyanocobalamin (Vitamin B12 1000 Mcg Tab) 1,000 mcg PO DAILY [facility] Last Admin: 07/11/18 09:06 Dose: 1,000 mcg Enoxaparin Sodium (Lovenox) 40 mg SC DAILY [facility]; Protocol Last Admin: 07/11/18 09:04 Dose: 40 mg Gabapentin (Neurontin) 400 mg PO BID [facility] Last Admin: 07/11/18 09:05 Dose: 400 mg Ketorolac Tromethamine (Toradol) 15 mg IVP Q6 PRN PRN Reason: Pain, severe (8-10) Last Admin: 07/11/18 06:24 Dose: 15 mg Montelukast Sodium (Singulair) 10 mg PO DAILY [facility] Last Admin: 07/11/18 09:05 Dose: 10 mg Pantoprazole Sodium (Protonix Ec Tab) 40 mg PO DAILY [facility] Last Admin: 07/11/18 09:05 Dose: 40 mg Paroxetine HCl (Paxil) 40 mg PO DAILY [facility] Last Admin: 07/11/18 09:05 Dose: 40 mg Physical Exam - Constitutional Appears: Well - Head Exam Head Exam: ATRAUMATIC, NORMAL INSPECTION, NORMOCEPHALIC - Eye Exam Eye Exam: EOMI, Normal appearance, PERRL Pupil Exam: NORMAL ACCOMODATION, PERRL - ENT Exam ENT Exam: Mucous Membranes Moist, Normal Exam - Neck Exam Neck exam: Positive for: Normal Inspection - Respiratory Exam Respiratory Exam: Clear to Auscultation Bilateral, NORMAL BREATHING PATTERN - Cardiovascular Exam Cardiovascular Exam: REGULAR RHYTHM, +S1, +S2 - GI/Abdominal Exam GI & Abdominal Exam: Normal Bowel Sounds, Soft. absent: Tenderness - Extremities Exam Extremities exam: Positive for: normal inspection - Back Exam Back exam: NORMAL INSPECTION - Neurological Exam Neurological exam: Alert, CN II-XII Intact, Normal Gait, Oriented x3, Reflexes Normal - Psychiatric Exam Psychiatric exam: Normal Affect, Normal Mood - Skin Skin Exam: Dry, Intact, Normal Color, Warm Results - Vital Signs Recent Vital Signs: Last Vital Signs Temp 98.2 F 07/11/18 12:03 Pulse 94 H 07/11/18 12:03 Resp 18 07/11/18 12:03 BP 143/79 07/11/18 12:03 Pulse Ox 97 07/11/18 12:03 - Labs Result Diagrams: 07/11/18 05:41 07/11/18 05:41 Labs: Laboratory Results - last 24 hr 07/10/18 07/10/18 07/10/18 21:10 21:23 21:23 WBC 6.8 RBC 4.02 Hgb 11.9 L Hct 36.2 MCV 90.0 MCH 29.5 MCHC 32.8 L RDW 14.8 H Plt Count 271 MPV 8.6 Neut % (Auto) 56.0 Lymph % (Auto) 29.3 [place] % (Auto) 8.1 Eos % (Auto) 6.0 H Baso % (Auto) 0.6 Neut # (Auto) 3.8 Lymph # (Auto) 2.0 [place] # (Auto) 0.6 Eos # (Auto) 0.4 Baso # (Auto) 0.0 PT INR APTT pO2 34 VBG pH 7.35 VBG pCO2 53 VBG HCO3 25.9 VBG Total CO2 30.9 H VBG O2 Sat (Calc) 70.9 H VBG Base Excess 2.5 H VBG Potassium 3.7 Sodium 139.0 140 Chloride 105.0 102 Glucose 99 Lactate 1.1 FiO2 21.0 Potassium 3.8 Carbon Dioxide 29 Anion Gap 13 BUN 13 Creatinine 0.9 Est GFR ( Amer) > 60 Est GFR (Non-Af Amer) > 60 Random Glucose 97 Calcium 9.6 Total Bilirubin 0.3 AST 37 H D ALT 34 Alkaline Phosphatase 83 Troponin I < 0.0120 NT-Pro-B Natriuret Pep 49.0 Total Protein 7.9 Albumin 4.4 Globulin 3.4 Albumin/Globulin Ratio 1.3 Triglycerides Cholesterol LDL Cholesterol Direct HDL Cholesterol Vitamin B12 Thyroxine (T4) Total T3 TSH 3rd Generation Venous Blood Potassium 3.7 Urine Color Urine Clarity Urine pH Ur Specific [place] Urine Protein Urine Glucose (UA) Urine Ketones Urine Blood Urine Nitrate Urine Bilirubin Urine Urobilinogen Ur Leukocyte Esterase Urine RBC (Auto) Urine Microscopic WBC Ur Squamous Epith Cells Urine Bacteria Blood Type Antibody Screen BBK History Checked 07/10/18 07/10/18 07/10/18 21:23 21:23 21:24 WBC RBC Hgb Hct MCV MCH MCHC RDW Plt Count MPV Neut % (Auto) Lymph % (Auto) [place] % (Auto) Eos % (Auto) Baso % (Auto) Neut # (Auto) Lymph # (Auto) [place] # (Auto) Eos # (Auto) Baso # (Auto) PT 10.9 INR 1.0 APTT 36.3 pO2 VBG pH VBG pCO2 VBG HCO3 VBG Total CO2 VBG O2 Sat (Calc) VBG Base Excess VBG Potassium Sodium Chloride Glucose Lactate FiO2 Potassium Carbon Dioxide Anion Gap BUN Creatinine Est GFR ( Amer) Est GFR (Non-Af Amer) Random Glucose Calcium Total Bilirubin AST ALT Alkaline Phosphatase Troponin I NT-Pro-B Natriuret Pep Total Protein Albumin Globulin Albumin/Globulin Ratio Triglycerides Cholesterol LDL Cholesterol Direct HDL Cholesterol Vitamin B12 Thyroxine (T4) Total T3 TSH 3rd Generation Venous Blood Potassium Urine Color Yellow Urine Clarity Clear Urine pH 6.0 Ur Specific [place] 1.009 Urine Protein Negative Urine Glucose (UA) Neg Urine Ketones Negative Urine Blood Small Urine Nitrate Negative Urine Bilirubin Negative Urine Urobilinogen 0.2-1.0 Ur Leukocyte Esterase Neg Urine RBC (Auto) 9 H Urine Microscopic WBC 1 Ur Squamous Epith Cells 3 Urine Bacteria Few H Blood Type A POSITIVE Antibody Screen Negative BBK History Checked Patient has bt 07/11/18 07/11/18 05:41 05:41 WBC 7.0 RBC 3.80 Hgb 11.3 L Hct 33.9 L MCV 89.2 MCH 29.8 MCHC 33.4 RDW 14.8 H Plt Count 276 MPV Neut % (Auto) Lymph % (Auto) [place] % (Auto) Eos % (Auto) Baso % (Auto) Neut # (Auto) Lymph # (Auto) [place] # (Auto) Eos # (Auto) Baso # (Auto) PT INR APTT pO2 VBG pH VBG pCO2 VBG HCO3 VBG Total CO2 VBG O2 Sat (Calc) VBG Base Excess VBG Potassium Sodium 140 Chloride 102 Glucose Lactate FiO2 Potassium 4.4 Carbon Dioxide 31 H Anion Gap 11 BUN 12 Creatinine 0.8 Est GFR ( Amer) > 60 Est GFR (Non-Af Amer) > 60 Random Glucose 98 Calcium 9.7 Total Bilirubin 0.3 AST 33 ALT 26 Alkaline Phosphatase 79 Troponin I NT-Pro-B Natriuret Pep Total Protein 7.4 Albumin 4.2 Globulin 3.2 Albumin/Globulin Ratio 1.3 Triglycerides 283 H Cholesterol 191 LDL Cholesterol Direct 97 HDL Cholesterol 48 Vitamin B12 820 Thyroxine (T4) 6.66 Total T3 1.14 L TSH 3rd Generation 4.20 Venous Blood Potassium Urine Color Urine Clarity Urine pH Ur Specific [place] Urine Protein Urine Glucose (UA) Urine Ketones Urine Blood Urine Nitrate Urine Bilirubin Urine Urobilinogen Ur Leukocyte Esterase Urine RBC (Auto) Urine Microscopic WBC Ur Squamous Epith Cells Urine Bacteria Blood Type Antibody Screen BBK History Checked Assessment & Plan (1) Headache Assessment and Plan: Will treat headache symptomatically with decadron 10 mg IV, depakote 500 mg IV and magnesium sulfate 1 gram IV. IF vertigo returns, I recommend dosing with Valium 2 mg Q12 hours PRN. Thank you for this consultation. Status: Acute
--- NOTE | 2018-07-11 21:10 | HP ---
CHIEF COMPLAINT: Left-sided numbness. HISTORY OF PRESENT ILLNESS: This is a 58-year-old female who was having headache and dizziness for about 2 weeks, which was getting worse and the patient started having numbness on the left arm, so the patient was brought to the emergency room and was admitted for further management. The patient has a history of CSF leak leading to brain surgery in the past. REVIEW OF SYSTEMS: Positive for headache, dizziness, and numbness of left side. Review of systems otherwise is negative for chest pain, shortness of breath, nausea, vomiting, diarrhea, constipation, any knee joint or extremity pain. Review of systems of all other organ system is unremarkable. PAST MEDICAL HISTORY: Significant for allergies, dyspepsia, neuropathy, and elevated cholesterol. PAST SURGICAL HISTORY: Remarkable for brain surgery with CSF leak. MEDICATIONS: The patient is on multiple medications including omeprazole, Singulair, vitamin D, Paxil, Neurontin, pravastatin, Zanaflex, albuterol, Flonase, prednisone, and metoclopramide. ALLERGIES: THE PATIENT IS ALLERGIC TO LEVAQUIN AND PENICILLIN. FAMILY HISTORY: Noncontributory. PHYSICAL EXAMINATION: GENERAL: A well-built, well-nourished 58-year-old female, in no acute distress. VITAL SIGNS: Temperature 98.2, pulse 94, respirations 18, blood pressure 143/79, and saturation 97%. HEENT: Pupils are reacting to light. No JVD. No thyromegaly. No lymphadenopathy. No nystagmus. Normocephalic, atraumatic skull. HEART: S1 and S2, normal and regular. No significant murmur, gallop, or rub is heard. LUNGS: Show good bilateral air exchange. No rales or rhonchi. ABDOMEN: Soft, nontender. No organomegaly. No fluid. Bowel sounds are present and normal. EXTREMITIES: No edema. No calf swelling. No tenderness. No acute ischemia. [employer]: The patient is alert, awake, and oriented x3. There is no sign of any acute gross focal motor or sensory neurological deficit at this time. DIAGNOSTIC DATA: Available diagnostic data reviewed. WBC 6.8, hemoglobin 11.9, hematocrit 36.2, platelets 271. Sodium 140, potassium 3.8, chloride 102, bicarb 29, BUN 13, creatinine 0.9. SMA-12 is unremarkable. Urine analysis is clear. MRI of brain is negative. CAT scan of a cervical spine and head also is negative. EKG did not reveal any acute ST-T changes. Chest x-ray is clear. ADMITTING IMPRESSION: Transient ischemic attack, rule out cerebrovascular accident and headache. PLAN: Case and plan discussed with the patient. Can Lugo MD
[2018-07-11] MEDS ORDERED: Alum-Mag Hydrox-Simethicone Susp (30 mL) PO ONE (23:11)
[2018-07-12] MEDS: Albuterol-Ipratrop 3 mg / 0.5 (3 ml) UD INH SCH ×4 (01:14→19:01)
[2018-07-12] MEDS ORDERED: Valproate 500 MG in Sodium Chloride 0.9% 100 ML IVPB ONE (09:00)
[2018-07-12] MEDS ORDERED: Dexamethasone 10 MG in Sodium Chloride 0.9% 50 ML IVPB ONE (09:00)
[2018-07-12] MEDS ORDERED: Magnesium Sulfate 1 gm in D5W 1 GM/100 ML BAG IVPB ONE (09:00)
[2018-07-12] MEDS: Enoxaparin 40 mg Syringe SC SCH (09:05)
[2018-07-12] MEDS: Pantoprazole 40 mg EC Tab PO SCH (09:06)
--- NOTE | 2018-07-12 11:03 | PN ---
DATE: 07/12/2018 SUBJECTIVE: The patient seen and examined. Interim events noted. Consults noted and appreciated. Neurology followup and intervention noted and appreciated. The patient remains in progressive care unit with telemetry monitoring. Still complains of occasional headache. No chest pain. No shortness of breath. No new weakness. PHYSICAL EXAMINATION: GENERAL: The patient is in no acute distress. VITAL SIGNS: Stable. HEART: S1, S2. Normal, regular. LUNGS: Good bilateral air exchange. ABDOMEN: Soft, nontender. EXTREMITIES: No edema. No calf swelling, no tenderness, no acute ischemia. CENTRAL NERVOUS SYSTEM: Essentially unchanged and there is no sign of any acute gross focal motor or sensory neurological deficits. DIAGNOSTIC DATA: Available diagnostic data reviewed. Telemetry monitoring does not show significant arrhythmia. ASSESSMENT AND PLAN: Overall, the patient is clinically stable. We will get headache medications ordered by response team. Can Lugo MD
--- NOTE | 2018-07-12 12:20 | CP.PCM.PN ---
Subjective - Date & Time of Evaluation Date of Evaluation: 07/12/18 Time of Evaluation: 12:17 - Subjective Subjective: Ms. Oakes was seen and examined today at bedside. She had just received the decadron, depakote and magnesium sulfate. She said her symptoms were improved. She continues to complain of intermittent vertigo. Objective - Vital Signs/Intake and Output Vital Signs (last 24 hours): Temp Pulse Resp BP Pulse Ox 98.1 F 84 18 147/84 100 07/12/18 08:14 07/12/18 08:14 07/12/18 08:14 07/12/18 08:14 07/12/18 08:14 - Medications Medications: Current Medications Albuterol (Ventolin Hfa 90 Mcg/Actuation (8 G)) 2 puff IH Q4 PRN PRN Reason: Wheezing,sob Albuterol/Ipratropium (Duoneb 3 Mg/0.5 Mg (3 Ml) Ud) 3 ml INH RQ6 [facility] Last Admin: 07/12/18 07:40 Dose: 3 ml Atorvastatin Calcium (Lipitor) 40 mg PO DAILY [facility] Last Admin: 07/12/18 09:05 Dose: 40 mg Cyanocobalamin (Vitamin B12 1000 Mcg Tab) 1,000 mcg PO DAILY [facility] Last Admin: 07/12/18 09:07 Dose: 1,000 mcg Enoxaparin Sodium (Lovenox) 40 mg SC DAILY [facility]; Protocol Last Admin: 07/12/18 09:05 Dose: 40 mg Gabapentin (Neurontin) 400 mg PO BID [facility] Last Admin: 07/12/18 09:06 Dose: 400 mg Ketorolac Tromethamine (Toradol) 15 mg IVP Q6 PRN PRN Reason: Pain, severe (8-10) Last Admin: 07/12/18 05:37 Dose: 15 mg Montelukast Sodium (Singulair) 10 mg PO DAILY [facility] Last Admin: 07/12/18 09:07 Dose: 10 mg Pantoprazole Sodium (Protonix Ec Tab) 40 mg PO DAILY [facility] Last Admin: 07/12/18 09:06 Dose: 40 mg Paroxetine HCl (Paxil) 40 mg PO DAILY [facility] Last Admin: 07/12/18 09:06 Dose: 40 mg - Labs Labs: 07/11/18 05:41 07/11/18 05:41 PT 10.9 Seconds (9.8-13.1) 07/10/18 21:23 INR 1.0 07/10/18 21:23 APTT 36.3 Seconds (25.6-37.1) 07/10/18 21:23 - Neurological Exam Neurological Exam: Alert, Awake, CN II-XII Intact, Normal Gait, Oriented x3, Reflexes Normal Neuro motor strength exam: Left Upper Extremity: 5, Right Upper Extremity: 5, Left Lower Extremity: 5, Right Lower Extremity: 5 Assessment and Plan (1) Headache Assessment & Plan: Improved. Will start amlodipine 5 mg daily for her BP and may help her headache as well. Status: Acute (2) Dizziness Assessment & Plan: May start Valium 2 mg Q12 PRN vertigo Status: Acute
[2018-07-13] MEDS: Albuterol-Ipratrop 3 mg / 0.5 (3 ml) UD INH SCH ×2 (03:07→07:19)
[2018-07-13] MEDS: Enoxaparin 40 mg Syringe SC SCH (08:47)
[2018-07-13] MEDS: Pantoprazole 40 mg EC Tab PO SCH (08:49)
[2018-07-13] MEDS: Apap-Butalbital-Caffeine 325-50-40mg Tab PO PRN ×3 (11:32→21:12)
--- NOTE | 2018-07-13 11:55 | CARD ---
APPROVED REPORT Date of service: 07/12/2018 EKG Measurement Heart [id number] <Conclusion> Sinus tachycardia Otherwise normal ECG
--- NOTE | 2018-07-13 12:41 | PN ---
DATE: 07/13/2018 SUBJECTIVE: The patient seen and examined. Interim events noted. Neurology followup and intervention noted and appreciated. The patient remains in progressive care unit on telemetry monitoring. Still complains of headache, also complains of jitteriness from inhalational treatment lasting for few minutes. Denies any chest pain or shortness of breath. PHYSICAL EXAMINATION: GENERAL: The patient is in no acute distress. VITAL SIGNS: Stable. Blood pressure is slightly elevated at 152/91. HEART: S1 and S2, normal and regular. LUNGS: Good bilateral air exchange. ABDOMEN: Soft, nontender. EXTREMITIES: No edema, no calf swelling, no tenderness, no acute ischemia. CENTRAL NERVOUS SYSTEM: Exam is essentially unchanged. DIAGNOSTIC DATA: Available diagnostic data reviewed. Overall, the patient is clinically stable. Plan as ordered. Can Lugo MD
--- NOTE | 2018-07-13 14:07 | CP.PCM.PN ---
Subjective - Date & Time of Evaluation Date of Evaluation: 07/13/18 Time of Evaluation: 14:05 - Subjective Subjective: Neuro Follow-Up: Mrs. Oakes was evaluated this afternoon at bedside. She states that she is feeling a little better with the h/a, but still feels the discomfort (pt states pain is usually throbbing; now it is a 3-4/10). Pt feels the dizziness more when she ambulates but it has improved as well. Pt admits to me that she has h/a every single day; they can last from 30 minutes to 48 hours. They are usually preceded by feelings of fatigued, dizziness, and seeing "floaters." The pt has had this for "many many years" and has discussed this with her PMD though she was never diagnosed with migraines, nor has she seen neuro for the h/a. Otherwise, she currently denies dizziness, visual changes, chest pain, sob, abd pain, n/v/d, paresthesias. Objective - Vital Signs/Intake and Output Vital Signs (last 24 hours): Temp Pulse Resp BP Pulse Ox 98.5 F 107 H 18 155/80 H 96 07/13/18 11:54 07/13/18 11:54 07/13/18 11:54 07/13/18 11:54 07/13/18 11:54 - Medications Medications: Current Medications Acetaminophen/Butalbital/Caffeine (Fioricet) 1 tab PO Q4 PRN PRN Reason: Headache Last Admin: 07/13/18 11:32 Dose: 1 tab Albuterol (Ventolin Hfa 90 Mcg/Actuation (8 G)) 2 puff IH Q4 PRN PRN Reason: Wheezing,sob Amlodipine Besylate (Norvasc) 5 mg PO DAILY [facility] Last Admin: 07/13/18 08:49 Dose: 5 mg Atorvastatin Calcium (Lipitor) 40 mg PO DAILY [facility] Last Admin: 07/13/18 08:47 Dose: 40 mg Cyanocobalamin (Vitamin B12 1000 Mcg Tab) 1,000 mcg PO DAILY [facility] Last Admin: 07/13/18 08:48 Dose: 1,000 mcg Diazepam (Valium) 2 mg PO Q12 PRN PRN Reason: vertigo Last Admin: 07/12/18 16:39 Dose: 2 mg Enoxaparin Sodium (Lovenox) 40 mg SC DAILY [facility]; Protocol Last Admin: 07/13/18 08:47 Dose: 40 mg Gabapentin (Neurontin) 400 mg PO BID [facility] Last Admin: 07/13/18 08:48 Dose: 400 mg Montelukast Sodium (Singulair) 10 mg PO DAILY [facility] Last Admin: 07/13/18 08:50 Dose: 10 mg Pantoprazole Sodium (Protonix Ec Tab) 40 mg PO DAILY [facility] Last Admin: 07/13/18 08:49 Dose: 40 mg Paroxetine HCl (Paxil) 40 mg PO DAILY [facility] Last Admin: 07/13/18 08:49 Dose: 40 mg - Labs Labs: 07/11/18 05:41 07/11/18 05:41 PT 10.9 Seconds (9.8-13.1) 07/10/18 21:23 INR 1.0 07/10/18 21:23 APTT 36.3 Seconds (25.6-37.1) 07/10/18 21:23 - Constitutional Appears: Well, Non-toxic, No Acute Distress - Head Exam Head Exam: ATRAUMATIC, NORMAL INSPECTION, NORMOCEPHALIC - Eye Exam Eye Exam: EOMI, Normal appearance, PERRL Pupil Exam: NORMAL ACCOMODATION, PERRL - ENT Exam ENT Exam: Mucous Membranes Moist - Neck Exam Neck Exam: Full ROM, Normal Inspection - Respiratory Exam Respiratory Exam: NORMAL BREATHING PATTERN - Extremities Exam Extremities Exam: Full ROM. absent: Calf Tenderness, Pedal Edema - Back Exam Back Exam: Full ROM - Neurological Exam Neurological Exam: Alert, Awake, CN II-XII Intact, Oriented x3, Reflexes Normal Neuro motor strength exam: Left Upper Extremity: 5, Right Upper Extremity: 5, Left Lower Extremity: 5, Right Lower Extremity: 5 - Psychiatric Exam Psychiatric exam: Normal Affect, Normal Mood - Skin Skin Exam: Normal Color Assessment and Plan (1) Headache Assessment & Plan: Imaging reviewed: -MRI Brain (07/10/18): No acute intracranial finding -CT Head (07/10/18): No acute intracranial abnormalities. No significant findings to account for the clinical presentation. No significant interval change compared to the prior examination(s). -Fioricet prn stated by primary team this morning. -We recommend Imitrex 100 mg IV x1 dose. -Continue with the Norvasc as ordered to help with the h/a and for BP management. Status: Acute (2) Dizziness Assessment & Plan: nayeli reviewed: -MRI Brain (07/10/18): No acute intracranial finding -CT Head (07/10/18): No acute intracranial abnormalities. No significant findings to account for the clinical presentation. No significant interval change compared to the prior examination(s). -Continue with Valium as ordered. Status: Acute
[2018-07-14] MEDS ORDERED: Metoprolol 1 mg/ml Inj IVP ONE (01:40)
[2018-07-14 07:50] VITALS: RESP 18
[2018-07-14] MEDS: Apap-Butalbital-Caffeine 325-50-40mg Tab PO PRN (09:08)
[2018-07-14] MEDS: Enoxaparin 40 mg Syringe SC SCH (09:09)
[2018-07-14] MEDS: Pantoprazole 40 mg EC Tab PO SCH (09:11)
[2018-07-14 11:50] VITALS: BP 104/62; PULSE 86; TEMP 98.5; O2SAT 95
--- NOTE | 2018-07-14 12:24 | CP.PCM.PN ---
Subjective - Date & Time of Evaluation Date of Evaluation: 07/14/18 Time of Evaluation: 12:22 - Subjective Subjective: Neuro F/U Mrs. Oakes was evaluated this morning at bedside. She states that she is feeling better today; no dizziness; no h/a. Admits that the Imitrex given yesterday helped relieve her h/a. ROS at this time is unremarkable. She is eager to go home today. Objective - Vital Signs/Intake and Output Vital Signs (last 24 hours): Temp Pulse Resp BP Pulse Ox 98.5 F 86 18 104/62 95 07/14/18 11:50 07/14/18 11:50 07/14/18 11:50 07/14/18 11:50 07/14/18 11:50 - Medications Medications: Current Medications Acetaminophen/Butalbital/Caffeine (Fioricet) 1 tab PO Q4 PRN PRN Reason: Headache Last Admin: 07/14/18 09:08 Dose: 1 tab Albuterol (Ventolin Hfa 90 Mcg/Actuation (8 G)) 2 puff IH Q4 PRN PRN Reason: Wheezing,sob Amlodipine Besylate (Norvasc) 5 mg PO DAILY [facility] Last Admin: 07/14/18 09:09 Dose: 5 mg Atorvastatin Calcium (Lipitor) 40 mg PO DAILY [facility] Last Admin: 07/14/18 09:09 Dose: 40 mg Cyanocobalamin (Vitamin B12 1000 Mcg Tab) 1,000 mcg PO DAILY [facility] Last Admin: 07/14/18 09:11 Dose: 1,000 mcg Diazepam (Valium) 2 mg PO Q12 PRN PRN Reason: vertigo Last Admin: 07/12/18 16:39 Dose: 2 mg Enoxaparin Sodium (Lovenox) 40 mg SC DAILY [facility]; Protocol Last Admin: 07/14/18 09:09 Dose: 40 mg Gabapentin (Neurontin) 400 mg PO BID [facility] Last Admin: 07/14/18 09:10 Dose: 400 mg Montelukast Sodium (Singulair) 10 mg PO DAILY [facility] Last Admin: 07/14/18 09:11 Dose: 10 mg Pantoprazole Sodium (Protonix Ec Tab) 40 mg PO DAILY [facility] Last Admin: 07/14/18 09:11 Dose: 40 mg Paroxetine HCl (Paxil) 40 mg PO DAILY [facility] Last Admin: 07/14/18 09:11 Dose: 40 mg - Labs Labs: 07/11/18 05:41 07/11/18 05:41 PT 10.9 Seconds (9.8-13.1) 07/10/18 21:23 INR 1.0 07/10/18 21:23 APTT 36.3 Seconds (25.6-37.1) 07/10/18 21:23 - Constitutional Appears: Well, Non-toxic, No Acute Distress - Head Exam Head Exam: ATRAUMATIC, NORMAL INSPECTION, NORMOCEPHALIC - Eye Exam Eye Exam: EOMI, Normal appearance, PERRL Pupil Exam: NORMAL ACCOMODATION, PERRL - ENT Exam ENT Exam: Mucous Membranes Moist, Normal Exam - Neck Exam Neck Exam: Full ROM, Normal Inspection - Respiratory Exam Respiratory Exam: NORMAL BREATHING PATTERN - Extremities Exam Extremities Exam: Full ROM - Back Exam Back Exam: Full ROM - Neurological Exam Neurological Exam: Alert, Awake, CN II-XII Intact, Oriented x3 Neuro motor strength exam: Left Upper Extremity: 5, Right Upper Extremity: 5, Left Lower Extremity: 5, Right Lower Extremity: 5 Additional comments: No focal neurological deficits - Psychiatric Exam Psychiatric exam: Normal Affect, Normal Mood - Skin Skin Exam: Normal Color Assessment and Plan (1) Headache Assessment & Plan: Imaging reviewed: -MRI Brain (07/10/18): No acute intracranial finding -CT Head (07/10/18): No acute intracranial abnormalities. No significant findings to account for the clinical presentation. No significant interval change compared to the prior examination(s). -Fioricet prn. -Imitrex prn for migraine at home; do not exceed more than 3 tabs. -Continue with the Norvasc as ordered to help with the h/a and for BP management. -F/u with Dr. Casas in the office on 07/23/18. Status: Acute (2) Dizziness Assessment & Plan: Imaging reviewed: -MRI Brain (07/10/18): No acute intracranial finding -CT Head (07/10/18): No acute intracranial abnormalities. No significant findings to account for the clinical presentation. No significant interval change compared to the prior examination(s). -Continue with Valium as ordered. Thank you for this consultation. Diann Richard, DNP, NURSE MIDWIFE/CLINICAL INSTRUCTOR d/w Dr. Casas Status: Acute
--- NOTE | 2018-07-15 11:45 | PQF ---
PROVIDER RESPONSE TEXT: Mild intermittent REVIEWER QUERY TEXT: Asthma Specificity and Type Asthma is documented in the Medical Record. Please specify the type if known and severity of asthma: i.e.: with exacerbation or stable Such as: -- Mild intermittent -- Mild persistent -- Moderate persistent -- Severe persistent -- Other, please specify H and P includes: a history of Asthma - Duoneb INH RQ6, Ventolin IH Q4 PRN, Singulair The patient's Clinical Indicators include: -- Query created by: Mandy Nuñez on 07/13/2018 11:38 AM Electronically signed by: Can Lugo 07/15/2018 11:41 AM
--- NOTE | 2018-07-15 11:45 | PQF ---
PROVIDER RESPONSE TEXT: TIA/CVA ruled out REVIEWER QUERY TEXT: Conflicting Documentation Clarification . A single mention of TIA, rule out CVA. Please clarify the diagnosis/diagnoses. Please also document if the condition is: -- Confirmed and current -- Confirmed, treated and resolved -- Ruled out -- Other, please specify H and P: Impression: TIA , rule out cerebrovascular accident and headache. 07/11 Neurology consult: CT head did not show any acute findings, and MRI of the brain did not show an y acute infarct.She had minor T2 hyperintensities that are non-specific.She continues to complain of headache. Impression: (1) Headache ; Will treat headache symptomatically with decadron 10 mg IV, depakote 500 mg IV and magnesium sulfate 1 gram IV.IF vertigo returns, I recommend dosing with Valium 2 mg Q12 lalito rs PRN 07/12 Neurology progress note: (1) Headache: Improved. Will start amlodipine 5 mg daily for her BP and may help her headache as well.Status: Acute (2) Dizziness: May start Valium 2 mg Q12 PRN vertigo Status: Acute The patient's Clinical Indicators include: -- Query created by: Mandy Nuñez on 07/13/2018 11:18 AM Electronically signed by: Can Lugo 07/15/2018 11:41 AM
== END 2018-07-14 13:30 | disposition home or self-care (01) | DRG 891 ==
LOC: H.ER 19:50 → H.ERHOLD 22:07 → OBSVTOIN 22:07 → H.TEL 23:45
PROVIDERS: ADMIT Internal Medicine; ATTEND Internal Medicine
DX: G43.909 Migraine, unspecified, not intractable, without status migrainosus (principal); R42 Dizziness and giddiness; J45.20 Mild intermittent asthma, uncomplicated; E78.00 Pure hypercholesterolemia, unspecified; K21.9 Gastro-esophageal reflux disease without esophagitis; Z87.11 Personal history of peptic ulcer disease; Z87.891 Personal history of nicotine dependence; F41.9 Anxiety disorder, unspecified; G62.9 Polyneuropathy, unspecified; M54.5 Low back pain; G89.29 Other chronic pain; K29.70 Gastritis, unspecified, without bleeding; Z79.899 Other long term (current) drug therapy